=== PATIENT | female | born 1960 | race Caucasian/White ===

== ENCOUNTER 2016-09-07 21:22 | Emergency (ER) | payer OTHER ==
--- NOTE | ~2016-09-07 | CR63 ---
[facility] A Service of [facility] RADIOLOGY TEXT RESULTS PATIENT: CRISPIN NAJERA LOCATION: SED : 56 UNIT #: [id number] AGE: [address]: Jenny Willams MD SEX: F ORDER DR: [id number] [address] [address] [id number] E MR#: [id number] Acc #: [id number] NAME: CRISPIN NAJERA : 1960 SEX: F STUDY DATE/TIME: 09/07/2016 23:13 UNIT: SED ROOM: STUDY DESCRIPTION: CR Chest 2 View Attending Physician: Jenny Willams M.D. Ordering Physician: Jenny Willams M.D. Primary Care Physician: [facility] MEDICAL IMAGING REPORT This report is preliminary unless electronic signature is present. EXAM PA and lateral chest INDICTIONS Cough since noon. , COMPARISON: 06/11/14 FINDINGS A PA and lateral view of the chest were obtained. The heart size and vascularity are normal and the lungs are clear. There is safety pin superimposed upon the left chest. IMPRESSION No active disease Dictated by... Abdiel Tinsley M.D. THIS IS AN ELECTRONICALLY VERIFIED REPORT Abdiel Tinsley M.D. at 09/08/2016 1:43 PM ROSIE/elizabeth TD: 09/08/2016 13:00 JOB #: [id number] MEDICAL IMAGING REPORT Page 1 of 1
--- NOTE | ~2016-09-07 | CR126 ---
[facility]. [facility] A Service of [facility] & [facility] RADIOLOGY TEXT RESULTS PATIENT: CRISPIN NAJERA LOCATION: SED : 56 UNIT #: [id number] AGE: [address]: Jenny Willams MD SEX: F ORDER DR: [id number] [address] [address] [id number] E MR#: [id number] Acc #: [id number] NAME: CRISPIN NAJERA : 1960 SEX: F STUDY DATE/TIME: 09/07/2016 23:13 UNIT: SED ROOM: STUDY DESCRIPTION: CR Foot Complete Min 3 View Lt Attending Physician: Jenny Willams M.D. Ordering Physician: Jenny Willams M.D. Primary Care Physician: [facility] MEDICAL IMAGING REPORT This report is preliminary unless electronic signature is present. EXAM Left foot. INDICATION Anterior foot pain after dropping nebulizer on foot today. FINDINGS Three views of the left foot were obtained. No fracture is visible. The bones are normal in appearance. IMPRESSION Normal left foot. Dictated by... Abdiel Tinsley M.D. THIS IS AN ELECTRONICALLY VERIFIED REPORT Abdiel Tinsley M.D. at 09/08/2016 1:43 PM FEL/alma TD: 09/08/2016 12:59 JOB #: [id number] MEDICAL IMAGING REPORT Page 1 of 1
[~2016-09-07 21:22] MED LIST: ALBUTEROL0.83 MG/ML IH; ALPRAZOLAM PO; AMOXICILLIN500 M1 PO; BACTRIM DS TABL1 TAB PO; CELEBREX; MEDROL PO; MEDROL4 MG/DOSE- PO; MOTRIN600 MG PO; NAPROXEN PO; NO MEDICATIONS; PERCOCET5/325 PO; PRILOSEC20 MG DOB; TESSALON200 MG PO; TYLOX 5/500 CAP1 CAP PO; ULTRAM PO
[2016-09-07] MEDS ORDERED: KLONOPIN (21:54)
[2016-09-07] MEDS ORDERED: LIPITOR (21:55)
== END 2016-09-08 00:34 | disposition home or self-care (01) ==
LOC: SED 21:22
DX: S90.32XA Contusion of left foot, initial encounter (principal); J40 Bronchitis, not specified as acute or chronic; J44.9 Chronic obstructive pulmonary disease, unspecified; Z88.5 Allergy status to narcotic agent; F17.210 Nicotine dependence, cigarettes, uncomplicated; Z79.899 Other long term (current) drug therapy; W20.8XXA Other cause of strike by thrown, projected or falling object, initial encounter; Y92.009 Unspecified place in unspecified non-institutional (private) residence as the place of occurrence of the external cause
CPT/HCPCS: 71020; 73630; 96372; 99283; J1100

== ENCOUNTER 2016-10-23 16:48 | Emergency (ER) | payer OTHER ==
[~2016-10-23 16:48] MED LIST changes: +KLONOPIN; +LIPITOR
[2016-10-23] MEDS ORDERED: NEURONTIN PO (16:53)
[2016-10-23] MEDS ORDERED: KLONOPIN PO (16:54)
[2016-10-23] MEDS ORDERED: NORVASC PO (16:54)
[2016-10-23] MEDS ORDERED: ATORVASTATIN PO (16:54)
[2016-10-23] MEDS ORDERED: CETIRIZINE PO (16:54)
[2016-10-23] MEDS ORDERED: ALBUTEROL INHALER INH (16:56)
[2016-10-23 18:43] LABS: URINE APPEARANCE CLEAR; URINE BILIRUBIN NEG (NEG); URINE BLOOD TRACE-INTACT (NEG); URINE COLOR YELLOW; URINE GLUCOSE NEG (NORM); URINE KETONE NEG (NEG); URINE LEUKOCYTE ESTERASE NEG (NEG); URINE NITRATE NEG (NEG); URINE PH 6.5 (5-8); URINE PROTEIN NEG (NEG); URINE SOURCE CLEAN CATCH; URINE UROBILINOGEN 0.2 MG/DL (NORM)
[2016-10-23 18:45] LABS: MICRO INDICATED? YES
[2016-10-23 18:52] LABS: CULTURE INDICATED? NO; URINE BACTERIA NEG (NEG)
[2016-10-23 18:53] LABS: URINE WBC NEG /[HPF] (0-5)
== END 2016-10-23 18:17 | disposition home or self-care (01) ==
LOC: SED 16:48
PROVIDERS: Emergency Medicine
DX: R60.0 Localized edema (principal); H92.01 Otalgia, right ear; F17.210 Nicotine dependence, cigarettes, uncomplicated; Z88.5 Allergy status to narcotic agent; Z79.899 Other long term (current) drug therapy
CPT/HCPCS: 81003; 99283